=== PATIENT | male | born 1985 | race Hispanic/Latino ===

== ENCOUNTER 2017-02-21 08:07 | Emergency (ER) | payer OTHER ==
[2017-02-21 08:28] VITALS: BP 155/77
[2017-02-21 08:42] LABS: Basophils % (Auto) 0.4 % (0.0-1.8); Eosinophils % (Auto) 0.9 % (0.0-4.3); Hematocrit 43.5 % (35.5-45.6); Hemoglobin 14.7 gm/dl (11.8-15.2); Mean Corpuscular HGB Conc 34 % (32-34); Mean Corpuscular Hemoglobin 30 pg (28-32); Mean Corpuscular Volume 88 fl (84-94); Platelet Count 155 K/mm3 (140-440); Red Blood Count 4.93 M/mm3 (3.65-5.03); Red Cell Distribution Width 12.9 % (13.2-15.2); White Blood Count 7.1 K/mm3 (4.5-11.0)
[2017-02-21 09:04] LABS: Anion Gap 15 mmol/L; BUN/Creatinine Ratio 16.25; Blood Urea Nitrogen 13 mg/dL (9-20); Calcium 8.9 mg/dL (8.4-10.2); Carbon Dioxide 27 mmol/L (22-30); Glucose 90 mg/dL (75-100); Potassium 4.3 mmol/L (3.6-5.0); Sodium 137 mmol/L (137-145)
[2017-02-21] MEDS ORDERED: TORADOL IM ONE (11:34)
--- NOTE | 2017-02-21 13:32 | Emergency Department Report ---
ED Chest Pain HPI - General Chief Complaint: Chest Pain Stated Complaint: CHEST PAIN /HBP Time Seen by Provider: 02/21/17 11:19 Source: patient Mode of arrival: Ambulatory Limitations: No Limitations - History of Present Illness Initial Comments: Patient is a 31-year-old male who presents emergency Department with complaint of chest pain since Tuesday. The patient describes his pain as sharp in nature in the anterior chest wall mainly on the right side. He has had some mild short of breath with the symptoms. It is not tender to the touch. He is no history of PE or PE risk factors. He has not traveled recently. He is not currently taking any medications. He also complains of a mild headache in the frontal region of his head. No nausea no vomiting - Related Data Previous Rx's Medication Instructions Recorded Last Taken Type Ibuprofen [Motrin 600 MG tab] 600 mg PO Q8H PRN #30 tablet 02/21/17 Unknown Rx Allergies Allergy/AdvReac Type Severity Reaction Status Date / Time No Known Allergies Allergy Unverified 02/21/17 08:23 Heart Score - HEART Score History: Slightly suspicious EKG: Normal Age: < 45 Risk factors: No known risk factors Troponin: < normal limit HEART Score: 0 - Critical Actions Critical Actions: 0-3 pts:0.9-1.7%risk of adverse cardiac event.Candidate for discharge ED Review of Systems ROS: Stated complaint: CHEST PAIN /HBP Other details as noted in HPI ED Past Medical Hx - Past Medical History Previous Medical History?: No - Surgical History Past Surgical History?: Yes Additional Surgical History: Oral surgery to remove wisdom teeth - Social History Smoking Status: Former Smoker Substance Use Type: Alcohol, Non Opiate Pain - Medications Home Medications: Home Medications Medication Instructions Recorded Confirmed Last Taken Type Ibuprofen [Motrin 600 MG tab] 600 mg PO Q8H PRN #30 tablet 02/21/17 Unknown Rx ED Physical Exam - General Limitations: No Limitations ED Course Vital Signs 02/21/17 08:23 Temperature 98.2 F Pulse Rate 92 H Respiratory 18 Rate Blood Pressure 155/77 O2 Sat by Pulse 94 Oximetry POWER score - Power Score Age > 65: (0) No Aspirin use within the Past 7 Days: (0) No 3 or more CAD Risk Factors: (0) No 2 or more Angina events in past 24 hrs: (0) No Known CAD with more than 50% Stenosis: (0) No Elevated Cardiac Markers: (0) No ST Deviation Greater than 0.5mm: (0) No POWER Score: 0 ED Medical Decision Making - Lab Data Result diagrams: 02/21/17 08:30 02/21/17 08:30 - EKG Data 02/21/17 11:31 Sinus 86 normal axis normal intervals and no ST-T wave changes - Medical Decision Making Patient is a 31-year-old male who presents emergency Department with complaint of pleuritic type chest pain. Pain is worse with deep breath. He has had some mild shortness of breath. He's never had these symptoms before. He has no PE risk factors. Plan to check d-dimer and will treat with Toradol. Negative troponin and d-dimer negative. He is low risk for PE so will discharge. Critical Care Time: No Critical care attestation.: If time is entered above; I have spent that time in minutes in the direct care of this critically ill patient, excluding procedure time. ED Disposition Clinical Impression: Chest pain Disposition: DC-01 TO HOME OR SELFCARE Is pt being admited?: No Does the pt Need Aspirin: No Condition: Stable Instructions: Chest Pain (ED) Prescriptions: Ibuprofen [Motrin 600 MG tab] 600 mg PO Q8H PRN #30 tablet PRN Reason: Pain
--- NOTE | 2017-02-21 13:34 | XRay Report ---
Chest 2 views: History: Chest pain. Findings: Normal cardiomediastinal silhouette. Trachea is midline. No consolidation, pneumothorax or pleural effusion. Impression: No acute cardiopulmonary findings.
== END 2017-02-21 13:49 | disposition home or self-care (01) ==
LOC: ED 08:07
DX: R07.9 Chest pain, unspecified (principal); R06.02 Shortness of breath; R51 Headache; Z87.891 Personal history of nicotine dependence
CPT/HCPCS: 36415; 71020; 80048; 84484; 85025; 85379; 93005; 93010; 99285